=== PATIENT | male | born 1995 | race Caucasian/White ===

== ENCOUNTER 2016-11-28 20:20 | Emergency (ER) | payer SELFPAY ==
[~2016-11-28] VITALS: Ht 182.9 cm; Wt 72.6 kg
[2016-11-28 20:30] VITALS: BP 143/80
[2016-11-28] MEDS ORDERED: LIDOCAINE HCL/PF 1% 30 ML VIAL TP ONE (20:30)
[2016-11-28] MEDS ORDERED: LIDOCAINE 2% 20 ML MDV ONE (20:39)
== END 2016-11-28 21:42 | disposition left against medical advice (07) ==
LOC: ER 20:20
DX: S61.210A Laceration without foreign body of right index finger without damage to nail, initial encounter (principal); W26.0XXA Contact with knife, initial encounter; Y93.89 Activity, other specified; Y92.89 Other specified places as the place of occurrence of the external cause; Y99.8 Other external cause status
CPT/HCPCS: 73140; 99284; A4606; J3490 ×2; Z7610

== ENCOUNTER 2017-02-07 17:33 | Emergency (ER) | payer OTHER ==
[~2017-02-07] VITALS: Ht 185.4 cm; Wt 68.0 kg
--- NOTE | 2017-02-07 17:45 | NUR ---
bra from [facility]: heroin overdose. bs in field 84. Pt given narcan 2mg ivp at field pt more alert. awaiting md order
--- NOTE | 2017-02-07 18:24 | NUR ---
Pt signed AMA. refused any treatment.
--- NOTE | 2017-02-07 18:25 | NUR ---
IV removed. Catheter intact and site benign. Pressure and 4x4 applied to site. No bleeding noted.
[2017-02-07 18:28] VITALS: BP 120/56
== END 2017-02-07 18:29 | disposition left against medical advice (07) ==
LOC: ER 17:34
DX: T40.1X1A Poisoning by heroin, accidental (unintentional), initial encounter (principal); I95.9 Hypotension, unspecified; Y92.89 Other specified places as the place of occurrence of the external cause; Y93.89 Activity, other specified; Y99.8 Other external cause status
CPT/HCPCS: A4606; Z7610

== ENCOUNTER 2017-04-20 16:35 | Emergency (ER) | payer OTHER ==
[~2017-04-20] VITALS: Ht 193 cm; Wt 79.4 kg
[2017-04-20 16:35] VITALS: BP 115/73
[2017-04-20] MEDS ORDERED: IBUPROFEN 400 MG TABLET ONE (16:59)
[2017-04-20] MEDS: IBUPROFEN 400 MG TABLET PO ONE (17:04)
== END 2017-04-20 17:23 | disposition home or self-care (01) ==
LOC: ER 16:50
DX: M54.9 Dorsalgia, unspecified (principal); R07.81 Pleurodynia; Z76.5 Malingerer [conscious simulation]
CPT/HCPCS: 71010-TC; A4606; Z7610

== ENCOUNTER 2018-03-10 16:54 | Emergency (ER) | payer OTHER ==
[~2018-03-10] VITALS: Ht 193 cm; Wt 79.4 kg
[2018-03-10] MEDS ORDERED: OLANZAPINE 5 MG/TAB.RAPDIS PO ONE (17:30)
[2018-03-10] MEDS ORDERED: FLUORESCEIN SODIUM OPHTH 1 EA STRIP ONE (17:57)
[2018-03-10] MEDS ORDERED: TETRACAINE HCL/PF 0.5% UD 2 ML BOTTLE ONE (17:57)
[2018-03-10] MEDS ORDERED: FLUORESCEIN SODIUM OPHTH 1 EA STRIP OP ONE (18:00)
[2018-03-10] MEDS ORDERED: TETRACAINE HCL 0.5% OPHTALMIC 15 ML BOTTLE OP ONE (18:00)
[2018-03-10] MEDS ORDERED: LIDOCAINE 0.5% HCL 50 ML VIAL IJ ONE (18:00)
[2018-03-10] MEDS ORDERED: OLANZAPINE 5 MG TABLET ONE (18:09)
[2018-03-10] MEDS ORDERED: LORAZEPAM INJ 2 MG/ML VIAL IM ONE (19:00)
[2018-03-10] MEDS ORDERED: HALOPERIDOL LACTATE INJ 5 MG/ML VIAL IM ONE (19:00)
[2018-03-10] MEDS ORDERED: HALOPERIDOL LACTATE INJ 5 MG/ML VIAL ONE (19:09)
[2018-03-10] MEDS ORDERED: LORAZEPAM INJ 2 MG/ML VIAL ONE (19:09)
--- NOTE | 2018-03-10 19:12 | NUR ---
PT LAYING IN GURNEY. NO SIGNS OF DISTRESS NOTED. PT CALM AND COOPERATIVE. VITAL SIGNS WITHIN NORMAL LIMITS. WILL CONT TO MONITOR PT.
--- NOTE | 2018-03-10 19:16 | NUR ---
FOOD AND DRINK PROVIDED FOR PATIENT.
--- NOTE | 2018-03-10 19:36 | NUR ---
RECYCLER FORKLIFT DRIVER TRUCK DRIVER AT BEDSIDE TO ATTEMPT BLOOD DRAW. UNABLE TO OBTAIN SAMPLE
--- NOTE | 2018-03-10 19:42 | NUR ---
DR OAKLEY AT BEDSIDE FOR BLOOD DRAW.
--- NOTE | 2018-03-10 19:48 | NUR ---
URINE COLLECTED AND SENT TO LAB.
[2018-03-10 20:04] LABS: BASOPHILS % (AUTO) 0.2 % (0.0-2.0); EOSINOPHILS % (AUTO) 0.3 % (0.0-6.0); HEMATOCRIT 38 % (39-51); HEMOGLOBIN 14.5 g/dL (13.5-17.5); LYMPHOCYTES # (AUTO) 1.7 /CMM (0.8-4.8); LYMPHOCYTES % (AUTO) 11.4 % (20.0-44.0); MEAN CORPUSCULAR HGB CONC 39 g/dl (31.0-36.0); MEAN CORPUSCULAR VOLUME 84 fL (80-96); MONOCYTES # (AUTO) 0.8 /CMM (0.1-1.30); MONOCYTES % (AUTO) 5.4 % (2.0-12.0); NEUTROPHILS % (AUTO) 82.7 % (43.0-81.0); PLATELET COUNT (AUTO) 157 /CMM (150-450); RDW COEFFICIENT OF VARIATION 13.5 (11.5-15.0); RED BLOOD CELL COUNT(AUTO) 4.47 MIL/uL (4.5-6.0); WHITE BLOOD COUNT (AUTO) 14.5 K/uL (4.3-11.0)
[2018-03-10 20:21] LABS: APPEARANCE,URINE Clear (CLEAR); BILIRUBIN,URINE Negative (NEGATIVE); BLOOD, URINE Negative Ery/uL (NEGATIVE); COLOR,URINE Yellow (YELLOW); KETONES,URINE 40 (NEGATIVE); LEUKOCYTE ESTERASE ,URINE Negative (NEGATIVE); NITRITE, URINE Negative (NEGATIVE); PROTEIN,URINE Trace mg/dl (NEGATIVE); UGLUCOSE Negative (NEGATIVE)
[2018-03-10 20:28] LABS: ALANINE AMINOTRANSFERASE 40 U/L (12-78); BILIRUBIN,DIRECT 0.1 mg/dL (0.0-0.2); CHLORIDE 105 mmol/L (98-107)
[2018-03-10 20:33] LABS: CARBON DIOXIDE 24 mmol/L (21-32); POTASSIUM 3.9 mmol/L (3.5-5.1); SODIUM SERUM 140 mmol/L (136-145)
[2018-03-10 20:34] LABS: BILIRUBIN,TOTAL 0.7 mg/dL (0.2-1.0); CALCIUM, SERUM 8.3 mg/dL (8.5-10.1); CREATININE 0.8 mg/dL (0.6-1.3); GLUCOSE 129 mg/dL (74-106); UREA NITROGEN, BLOOD 18 mg/dL (7-18)
[2018-03-10 20:35] LABS: ALBUMIN 4.3 g/dL (3.4-5.0); ALKALINE PHOSPHATASE 65 U/L (46-116); ASPARTATE AMINOTRANSFERASE 27 U/L (15-37); TOTAL PROTEIN, SERUM 7.2 g/dL (6.4-8.2)
[2018-03-10 20:36] LABS: ACETAMINOPHEN 0 ug/ml (10-30); ALCOHOL, BLOOD < 3 mg/dL (0-0); SALICYLATE 1.4 mg/dL (2.8-20.0)
[2018-03-10 20:51] LABS: BACTERIA,URINE Rare /HPF (None Seen); RBC,URINE 0-2 /HPF (0-2); SQUAMOUS EPITHELIAL CELL,UR Rare /HPF (None Seen); WBC,URINE 0-2 /HPF (0-3)
[2018-03-10 20:52] LABS: MUCUS,URINE Rare /LPF (None Seen); URINE AMORPHOUS URATE Few /HPF (None Seen)
[2018-03-10 21:05] LABS: EOSINOPHILS % (MANUAL) 1 % (0-4); LYMPHOCYTES % (MANUAL) 11 % (16-48); MONOCYTES % (MANUAL) 7 % (0-11.0); NEUTROPHILS % (MANUAL) 81 (42-76)
--- NOTE | 2018-03-11 01:03 | NUR ---
ART SHEETING PULLER AT BEDSIDE FOR EVAL.
--- NOTE | 2018-03-11 06:09 | NUR ---
Patient discharged to home in stable condition. Written and verbal after care instructions given. Patient verbalizes understanding of instruction. VSS UPON DISCHARGE. PT AMBULATED WITH STEADY GAIT OUT OF ER.
[2018-03-11 06:12] VITALS: BP 139/81
== END 2018-03-11 06:14 | disposition home or self-care (01) ==
LOC: ER 16:59
DX: T47.5X1A Poisoning by digestants, accidental (unintentional), initial encounter (principal); R41.0 Disorientation, unspecified; R45.1 Restlessness and agitation; F25.9 Schizoaffective disorder, unspecified; H57.8 Other specified disorders of eye and adnexa; Z60.2 Problems related to living alone; Y92.89 Other specified places as the place of occurrence of the external cause
CPT/HCPCS: 36415; 80048-TC; 80076-TC; 80305; 81000-TC; 85025-TC; A4606; G0480; J1630; J2060; J7030; Z7610